=== PATIENT | male | born 1950 | race Caucasian/White ===

== ENCOUNTER 2021-03-25 11:59 | Outpatient (CLI) | payer MEDICARE | END 2021-03-25 23:59 | disposition home or self-care (01) | LOC: RAD 11:59 | PROVIDERS: ATTEND Physician Assistant Medical | DX: I86.1 Scrotal varices (principal); R10.31 Right lower quadrant pain; G89.29 Other chronic pain; M25.551 Pain in right hip; B35.6 Tinea cruris | CPT/HCPCS: 76857 ==